=== PATIENT | female | born 1955 | race Caucasian/White ===

== ENCOUNTER 2017-11-07 16:30 | Emergency (ER) | payer OTHER ==
[2017-11-07 16:55] VITALS: BP 150/68
--- NOTE | 2017-11-07 17:17 | ED Physician Documentation ---
General Adult - HISTORIAN Historian: patient - HPI Stated Complaint: cough, fever Chief Complaint: General Adult Additional Information: fever sore throat hoarseness cough Onset: days ago (4-5) Timing: still present, worse Severity: moderate Last known Well Code/Unknown Code: Known - ROS CONST: weakness, chills, other (diarrhea yest) EYES/ENT: sore throat, nasal drainage, nasal congestion. denies: problems with vision CVS/RESP: cough. denies: chest pain, shortness of breath GI/: denies: abdominal pain, problems urinating, vomiting MS/SKIN/LYMPH: none, joint pain - PAST HX Past History: hypertension, other (breast ca gerd insomnia depression) Immunizations: influenza, UTD Allergies/Adverse Reactions: Allergies Allergy/AdvReac Type Severity Reaction Status Date / Time ketorolac tromethamine Allergy Verified 11/07/17 16:46 [From Toradol] NSAIDS (Non-Steroidal Allergy Verified 11/07/17 16:46 Anti-Inflamma Penicillins Allergy Verified 11/07/17 16:46 Sulfa (Sulfonamide Allergy Verified 11/07/17 16:46 Antibiotics) zolmitriptan [From Zomig] Allergy Verified 11/07/17 16:46 Home Medications: Ambulatory Orders Medication Instructions Recorded Amitriptyline HCl [Elavil] 50 mg PO HS 04/09/14 Cyclobenzaprine HCl 10 mg PO HS 04/09/14 Gabapentin [Gabapentin] 600 mg PO HS 04/09/14 Lisinopril [Lisinopril] 20 mg PO D 04/09/14 Montelukast Sodium [Singulair] 10 mg PO HS 04/09/14 Verapamil HCl 40 mg PO D 04/09/14 Zolpidem Tartrate [Ambien] 10 mg PO HS 04/09/14 Aspirin [Navid] 325 mg PO DAILY 09/18/14 Fluoxetine HCl [Prozac] 20 mg PO DAILY 09/18/14 Folic Acid [Folvite] 1 mg PO DAILY 09/18/14 Ipratropium/Albuterol Sulfate 1 puff IH QID 5 Days inh 09/18/14 [Combivent Respimat] Staples-3S/Dha/Epa/Fish Oil [Staples-3 1 each PO DAILY 09/18/14 Fish Oil 1,000 mg Sfgl] Omeprazole [Prilosec] 40 mg PO DAILY 09/18/14 Ondansetron HCl Rapdis [Zofran Odt] 4 mg PO Q8 #10 tab 11/05/15 Phenazopyridine HCl [Pyridium] 200 mg PO TID PRN #6 tablet 11/05/15 - SOCIAL HX Smoking History: non-smoker Alcohol Use: none Drug Use: none - FAMILY HX Family History: No - VITAL SIGNS Vital Signs: Vital Signs Temp Pulse Resp BP Pulse Ox 98.2 F 94 H 22 150/68 97 11/07/17 16:49 11/07/17 16:49 11/07/17 16:49 11/07/17 16:49 11/07/17 16:49 - REVIEWED ASSESSMENTS Nursing Assessment Reviewed: Yes Vitals Reviewed: Yes ED Results Lab/Radiology - Orders Orders: ED Orders Category Date Time Status Rapid Strep [GRP A STREP SCREEN] Stat Lab 11/07/17 16:45 Ordered General Adult Physical Exam - PHYSICAL EXAM GENERAL APPEARANCE: mild distress EENT: eye inspection normal, pharyngeal erythema (slight-strept negative). No: dry mucous membranes NECK: normal inspection. No: lymphadenopathy RESPIRATORY: no resp distress, chest non-tender, breath sounds normal CVS: reg rate & rhythm, heart sounds normal ABDOMEN: soft, non-tender SKIN: warm/dry, normal color. No: cyanosis, diaphoresis, jaundice EXTREMITIES: non-tender, normal range of motion NEURO: oriented X3, motor nml, sensation nml, mood/affect nml, cognition normal Discharge Clincal Impression: viral resp and gi infection Referrals: Kaia Laureano MD [Primary Care Provider] - 2 Days Comments: [facility] pepto bismol prn diarrhea vits bal nut Condition: Good Disposition: 01 HOME, SELF-CARE Decision to Admit: NO Decision Time: 17:21
== END 2017-11-07 17:32 | disposition home or self-care (01) ==
LOC: ED 16:30
DX: J98.8 Other specified respiratory disorders (principal); A09 Infectious gastroenteritis and colitis, unspecified
CPT/HCPCS: 87070; 87880; 99282